=== PATIENT | male | born 1995 | race Asian ===

== ENCOUNTER 2017-11-16 21:51 | Emergency (ER) | END 2017-11-17 01:43 | disposition home or self-care (01) ==

== ENCOUNTER 2018-09-24 18:24 | Emergency (ER) | payer SELFPAY ==
[~2018-09-24] VITALS: Ht 172.7 cm; Wt 91.9 kg
[~2018-09-24 18:24] MED LIST: NAPR-985 PO
[2018-09-24 19:02] VITALS: BP 152/74; PULSE 80; RESP 20; Ht 172.7 cm; Wt 91.9 kg
== END 2018-09-24 21:30 | disposition left against medical advice (07) ==
LOC: FTE 18:24
DX: Z53.21 Procedure and treatment not carried out due to patient leaving prior to being seen by health care provider (principal)